=== PATIENT | male | born 1960 | race Caucasian/White ===

== ENCOUNTER 2022-01-12 11:24 | Observation (INO) ==
[2022-01-12 14:14] LABS: Bacteria,Urine Few per hpf (None-Few); Bilirubin,Urine Negative (Negative); Blood,Urine Trace (Negative); Clarity,Urine Clear (Clear); Color,Urine Colorless (Yellow); Glucose,Urine (UA) >=1000 mg/dL (Normal); Hyaline Casts,Urine Few per lpf (None Seen); Ketones,Urine Negative (Negative); Leukocyte Esterase,Urine Negative (Negative); Mucus,Urine Few per lpf (None-Few); Nitrite,Urine Negative (Negative); Protein,Urine Trace mg/dL (Neg-Trace); RBC,Urine 0-3 per hpf (0-3); Specific Gravity,Urine 1.015 (1.010-1.025); Squamous Epithelial Cell,Urine Few per hpf (None-Few); Urobilinogen,Urine Normal (Normal); WBC,Urine 0-3 per hpf (0-3)
[2022-01-12 14:27] LABS: Mean Corpuscular Hemoglobin 24.1 pg (28.0-33.3)
[2022-01-12 14:28] LABS: Amphetamine Screen,Urine Negative ng/mL (Cutoff=1000); Barbiturate Screen,Urine Negative ng/mL (Cutoff=200); Benzodiazepines Screen,Urine Negative ng/mL (Cutoff=200); Cannabinoid Screen,Urine Negative ng/mL (Cutoff = 50); Cocaine Screen,Urine Negative ng/mL (Cutoff= 300); Opiate Screen,Urine Negative ng/mL (Cutoff=300); Phencyclidine Screen,Urine Negative ng/mL (Cutoff=25)
[2022-01-12 14:29] LABS: Eosinophils # 0.2 K/mcL (0.0-0.6); Hematocrit 29.4 % (37.5-50.1); Hemoglobin 8.4 g/dL (12.9-16.9); Immature Platelets 5.8 % (1.1-6.1); Lymphocytes # 1.2 K/mcL (0.6-4.6); Mean Corpuscular HGB Conc 28.6 g/dL (31.6-35.5); Mean Corpuscular Volume 84.5 fL (83.0-100.0); Red Blood Count 3.48 M/mcL (4.19-5.50); Red Cell Distribution Width 14.9 % (11.5-14.5); White Blood Count 7.5 K/mcL (4.3-11.1)
[2022-01-12 14:38] LABS: Platelet Count 96 K/mcL (140-400)
[2022-01-12 15:19] LABS: Neutrophils # 6.2 K/mcL (1.6-8.9)
[2022-01-12 15:22] LABS: Hypochromasia Present (Not Present); Platelet Estimate Decreased (Normal); Polychromasia 1+ (Not Present)
[2022-01-12 15:38] LABS: Alanine Aminotransferase 8 Units/L (7-52); Albumin 3.8 g/dL (3.5-5.7); Alkaline Phosphatase 64 Units/L (34-104); Aspartate Amino Transferase 11 Units/L (13-39); BUN/Creatinine Ratio 12 (6-26); Bilirubin,Direct 0.1 mg/dL (0.0-0.2); Bilirubin,Indirect 0.4 mg/dL (0.0-1.0); Bilirubin,Total 0.5 mg/dL (0.3-1.0); Blood Urea Nitrogen 29 mg/dL (8-23); Calcium 9.1 mg/dL (8.6-10.3); Carbon Dioxide 21 mEq/L (23-29); Chloride 104 mEq/L (98-107); Ethanol < 10 mg/dL (Less than 10); Globulin 3.8 g/dL (2.4-3.5); Glucose 499 mg/dL (70-105); Lipase 115 Units/L (11-82); Osmolality,Calculated 306 (280-300); Potassium 4.1 mEq/L (3.5-5.1); Sodium 134 mEq/L (136-145); Total Protein 7.6 g/dL (6.4-8.9); eGFR For African Americans 33 (> 60); eGFR For Non-African Americans 27 (> 60)
[2022-01-12 15:54] LABS: Troponin I < 0.03 ng/mL (< 0.04)
[2022-01-12 15:59] LABS: Prothrombin Time 11.6 Seconds (9.4-12.1)
[2022-01-12 16:02] LABS: Activated Partial Thrombo Time 32.1 Seconds (26.0-36.0)
[2022-01-12] MEDS ORDERED: 0.9 % Sodium Chloride 1,000 ML IVC ONE ×2 (16:08→18:26)
[2022-01-12 18:26] LABS: VBG HCO3 21 mEq/L (21-27); VBG PCO2 46 mmHg (41-51); VBG PH 7.27 pH Units (7.32-7.42); VBG PO2 64 mmHg (25-50)
[2022-01-12] MEDS ORDERED: *HR* Dextrose 50 % in Water (Syg) 50 ML SYRINGE IVP PRN ×2 (18:26→20:00)
[2022-01-12] MEDS ORDERED: Acetaminophen 325 MG TABLET PO PRN (20:00)
[2022-01-12] MEDS ORDERED: Melatonin 3 MG TABLET PO PRN (20:00)
[2022-01-12] MEDS ORDERED: Dextrose Gel 15 GM/37.5 ML TUBE PO PRN ×2 (20:00)
[2022-01-12] MEDS ORDERED: Ondansetron ODT 4 MG TAB.RAPDIS SL PRN (20:00)
[2022-01-12] MEDS ORDERED: Naloxone 0.4 MG/ML INJ IVP PRN (20:00)
[2022-01-12] MEDS ORDERED: D5% in Water 1,000 ML IVC PRN (20:00)
[2022-01-12 22:52] LABS: Estimated Average Glucose 341 mg/dl; Hemoglobin A1C 13.5 %
[2022-01-12 23:08] LABS: % Iron Saturation 3 % (20-55); Iron 15 mcg/dL (65-175); Transferrin 366 mg/dL (203-362)
[2022-01-12] MEDS: Insulin DETEMIR 100 UNIT/ML X5UNITS SUBQ SCH (23:23)
[2022-01-12 23:27] LABS: Ferritin 12 ng/mL (20-250)
[2022-01-12] MEDS: Insulin LISPRO 300 UNITS/3 ML VIAL SUBQ SCH (23:49)
[2022-01-13 02:00] LABS: INR 1.1; Prothrombin Time 12.2 Seconds (9.4-12.1)
[2022-01-13 02:14] LABS: Calcium 8.3 mg/dL (8.6-10.3); Potassium 4.4 mEq/L (3.5-5.1)
[2022-01-13 03:14] LABS: Basophils % 0.5 %
[2022-01-13 03:16] LABS: Eosinophils # 0.2 K/mcL (0.0-0.6); Hematocrit 27.3 % (37.5-50.1); Hemoglobin 7.9 g/dL (12.9-16.9); Immature Granulocytes % 0.9 % (0-4); Lymphocytes # 1.8 K/mcL (0.6-4.6); Lymphocytes % 20.8 %; Mean Corpuscular HGB Conc 28.9 g/dL (31.6-35.5); Mean Corpuscular Hemoglobin 24.2 pg (28.0-33.3); Mean Corpuscular Volume 83.7 fL (83.0-100.0); Mean Platelet Volume 10.8 fL (9.4-12.4); Monocytes # 0.7 K/mcL (0.0-1.3); Monocytes % 7.4 %; Platelet Count 104 K/mcL (140-400); Red Blood Count 3.26 M/mcL (4.19-5.50); Red Cell Distribution Width 14.6 % (11.5-14.5); Segmented Neutrophils % 68.4 %; White Blood Count 8.8 K/mcL (4.3-11.1)
[2022-01-13 04:43] LABS: Anisocytosis 1+ (Not Present); Hypochromasia Present (Not Present); Platelet Estimate Slight Decrease (Normal)
[2022-01-13] MEDS: Pantoprazole 40 MG VIAL IVP SCH ×2 (05:50→17:08)
[2022-01-13] MEDS: Insulin LISPRO 300 UNITS/3 ML VIAL SUBQ SCH ×3 (05:50→17:07)
[2022-01-13 07:33] LABS: Chol/HDL Ratio 5.5 (0-4.9); Magnesium 2.2 mg/dL (1.6-2.6); Phosphorous 3.7 mg/dL (2.7-4.5)
[2022-01-13] MEDS ORDERED: Furosemide 20 MG TABLET PO SCH (09:00)
[2022-01-13 09:34] LABS: Triiodothyronine (T3) Free 2.71 pg/mL (2.50-3.90)
[2022-01-13] MEDS: calcitrioL 0.25 MCG CAPSULE PO SCH (09:49)
[2022-01-13] MEDS: Cholecalciferol (D-3) 1,000 UNIT (25MCG) TABLET PO SCH (09:50)
[2022-01-13] MEDS: Iron Sucrose Complex 200 MG in 0.9 % Sodium Chloride 100 ML IVPB SCH (09:51)
[2022-01-13] MEDS: Insulin DETEMIR 100 UNIT/ML X5UNITS SUBQ SCH (20:06)
[2022-01-14] MEDS: Insulin LISPRO 300 UNITS/3 ML VIAL SUBQ SCH ×5 (00:29→23:57)
[2022-01-14 02:38] LABS: Basophils % 0.3 %
[2022-01-14 02:39] LABS: Eosinophils # 0.3 K/mcL (0.0-0.6); Eosinophils % 2.8 %; Hematocrit 25.9 % (37.5-50.1); Hemoglobin 7.3 g/dL (12.9-16.9); Immature Granulocytes % 1.2 % (0-4); Lymphocytes # 2.3 K/mcL (0.6-4.6); Mean Corpuscular HGB Conc 28.2 g/dL (31.6-35.5); Mean Corpuscular Hemoglobin 23.9 pg (28.0-33.3); Mean Corpuscular Volume 84.6 fL (83.0-100.0); Mean Platelet Volume 11.7 fL (9.4-12.4); Monocytes # 0.7 K/mcL (0.0-1.3); Monocytes % 7.4 %; Neutrophils # 6.5 K/mcL (1.6-8.9); Nucleated Red Blood Cells 0.3 /100 WBC (0); Platelet Count 107 K/mcL (140-400); Red Blood Count 3.06 M/mcL (4.19-5.50); Red Cell Distribution Width 14.9 % (11.5-14.5); Segmented Neutrophils % 65.3 %; White Blood Count 9.9 K/mcL (4.3-11.1)
[2022-01-14 02:56] LABS: Calcium 8.4 mg/dL (8.6-10.3); Potassium 3.5 mEq/L (3.5-5.1)
[2022-01-14 03:27] LABS: Anisocytosis 1+ (Not Present)
[2022-01-14 03:28] LABS: Hypochromasia Present (Not Present); Platelet Estimate Slight Decrease (Normal); Polychromasia 1+ (Not Present)
[2022-01-14] MEDS: Pantoprazole 40 MG VIAL IVP SCH (05:42)
[2022-01-14] MEDS: Cholecalciferol (D-3) 1,000 UNIT (25MCG) TABLET PO SCH (08:05)
[2022-01-14] MEDS: Iron Sucrose Complex 200 MG in 0.9 % Sodium Chloride 100 ML IVPB SCH (08:05)
[2022-01-14] MEDS: calcitrioL 0.25 MCG CAPSULE PO SCH (08:05)
[2022-01-14 11:59] LABS: Hematocrit 27.4 % (37.5-50.1); Hemoglobin 7.7 g/dL (12.9-16.9)
[2022-01-14] MEDS ORDERED: Lidocaine -MPF 2% 5 ML VIAL ONE (14:29)
[2022-01-14] MEDS ORDERED: 0.9 % Sodium Chloride 500 ML ONE (17:43)
[2022-01-14] MEDS: Insulin DETEMIR 100 UNIT/ML X5UNITS SUBQ SCH (21:44)
[2022-01-14 22:16] LABS: Folate 16.2 ng/mL (3.0-16.0)
[2022-01-14 22:19] LABS: Hematocrit 29.9 % (37.5-50.1); Hemoglobin 8.9 g/dL (12.9-16.9)
[2022-01-15 02:48] LABS: Hemoglobin 8.6 g/dL (12.9-16.9)
[2022-01-15 02:50] LABS: Basophils # 0.1 K/mcL (0.0-0.2); Basophils % 0.5 %; Eosinophils # 0.3 K/mcL (0.0-0.6); Eosinophils % 2.9 %; Hematocrit 29.8 % (37.5-50.1); Immature Granulocytes % 1.7 % (0-4); Lymphocytes % 18.9 %; Mean Corpuscular HGB Conc 28.9 g/dL (31.6-35.5); Mean Corpuscular Hemoglobin 24.7 pg (28.0-33.3); Mean Corpuscular Volume 85.6 fL (83.0-100.0); Mean Platelet Volume 11.4 fL (9.4-12.4); Monocytes # 0.9 K/mcL (0.0-1.3); Monocytes % 8.7 %; Neutrophils # 7.1 K/mcL (1.6-8.9); Nucleated Red Blood Cells 0.6 /100 WBC (0); Platelet Count 107 K/mcL (140-400); Red Blood Count 3.48 M/mcL (4.19-5.50); Red Cell Distribution Width 14.9 % (11.5-14.5); Segmented Neutrophils % 67.3 %; White Blood Count 10.5 K/mcL (4.3-11.1)
[2022-01-15 02:57] LABS: Anisocytosis 1+ (Not Present); Hypochromasia Present (Not Present); Platelet Estimate Decreased (Normal)
[2022-01-15 03:03] LABS: Calcium 8.4 mg/dL (8.6-10.3); Potassium 3.9 mEq/L (3.5-5.1)
[2022-01-15] MEDS: Insulin LISPRO 300 UNITS/3 ML VIAL SUBQ SCH ×2 (08:31→11:23)
[2022-01-15] MEDS: calcitrioL 0.25 MCG CAPSULE PO SCH (08:32)
[2022-01-15] MEDS: Cholecalciferol (D-3) 1,000 UNIT (25MCG) TABLET PO SCH (08:32)
[2022-01-15] MEDS: Iron Sucrose Complex 200 MG in 0.9 % Sodium Chloride 100 ML IVPB SCH (08:36)
[2022-01-15 08:42] VITALS: O2SAT 92
[2022-01-15 11:08] VITALS: BP 120/67; PULSE 80; TEMP 98.1
[2022-01-15] MEDS ORDERED: Insulin LISPRO 300 UNITS/3 ML VIAL SUBQ SCH (21:00)
== END 2022-01-15 12:42 | disposition home health service (06) ==
LOC: 2NNU 11:24 → 2NENU 11:24 → EMEROOARM 11:24 → 2NENU 22:51
PROVIDERS: ADMIT Internal Medicine; ATTEND Internal Medicine
PROC: ENDOEBX (2022-01-14 14:30)